=== PATIENT | female | born 1995 ===

== ENCOUNTER 2019-10-16 17:33 | Inpatient (IN) | payer OTHER ==
[~2019-10-16] VITALS: Ht 165.1 cm; Wt 109.0 kg
[2019-10-16] MEDS ORDERED: LABE100 PO (18:01)
[2019-10-16 18:25] LABS: BASOPHILS ABSOLUTE AUTO 0.06 K/mm3 (0.00-0.23); BASOPHILS PERCENT AUTO 1 % (0-2); EOSINOPHILS PERCENT AUTO 2 % (0-6); Hematocrit 36.4 % (33.0-51.0); Hemoglobin 12.3 g/dL (11.5-16.0); IMMATURE GRAN ABSOLUTE AUTO 0.17 K/mm3 (0.00-0.10); IMMATURE GRAN PERCENT AUTO 1 % (0-1); LYMPHOCYTES ABSOLUTE AUTO 1.84 K/mm3 (0.84-5.20); LYMPHOCYTES PERCENT AUTO 14 % (21-46); MONOCYTES ABSOLUTE AUTO 0.88 K/mm3 (0.16-1.47); MONOCYTES PERCENT AUTO 7 % (4-13); Mean Corpuscular HGB 29.6 pg (26.0-34.0); Mean Corpuscular HGB Conc 33.8 g/dL (31.5-36.5); Mean Corpuscular Volume 88 fL (80-100); Mean Platelet Volume 10.4 fL (9.1-12.4); NEUTROPHILS ABSOLUTE AUTO 9.66 K/mm3 (1.96-9.15); NEUTROPHILS PERCENT AUTO 75 % (41-73); Platelet Count 259 K/mm3 (150-400); RDW Coefficient Variation 12.8 % (11.7-14.2); RDW Standard Deviation 40.7 fL (35.1-46.3); Red Blood Cell Count 4.15 M/mm3 (3.80-5.20); White Blood Cell Count 12.91 K/mm3 (4.00-11.30)
[2019-10-16 18:50] LABS: Alanine Aminotransfer (ALT/SGP 26 U/L (12-78); Albumin, Blood 2.9 g/dL (3.4-5.0); Albumin/Globulin Ratio 0.8 (0.8-1.8); Alk Phos 124 U/L (50-136); Anion Gap 11 mmol/L (6-16); Aspartate Aminotrans (AST/SGOT 16 U/L (12-37); Bilirubin, Total 0.1 mg/dL (0.1-1.0); Blood Urea Nitrogen 12 mg/dL (8-24); Bun/Creatinine Ratio 18.9 (12.0-20.0); CO2, Blood 18 mmol/L (21-32); Calcium, Blood 9.1 mg/dL (8.5-10.1); Chloride, Blood 110 mmol/L (98-108); Creatinine, Blood 0.64 mg/dL (0.40-1.00); Globulin, Blood 3.7 g/dL (2.2-4.0); Glomerular Filtration Rate >60 (60-); Glucose, Blood 150 mg/dL (70-99); Potassium, Blood 3.4 mmol/L (3.5-5.5); Sodium, Blood 139 mmol/L (136-145); Total Protein, Blood 6.6 g/dL (6.4-8.2)
--- NOTE | 2019-10-17 23:29 | NUR ---
SHOWER PT AMBULATED TO SHOWER TOLERATED WELL. PT TOLERATED SHOWER WELL. LINEN CHANGED ON BED. NEW GOWN ON PT. PT FIRST VOID IN SHOWER. PT ABLE TO AMBULATE WITHOUT ASSISTANCE BACK TO BED. PT EDUCATED ABOUT IF PT FEELING LIGHT HEADED OR DIZZINESS TO CALL FOR ASSITANCE WITH AMBULATION.PT EDUCATED ON DAISY MEDS AND HOW TO APPLY DAISY PADS. PT EDUCATED ON MAKEING SURE TO URINATE EVERY 2-3 HOURS AND TO BREASTFEED EVERY 2-3 HOURS. PT VERBALIZED UNDERSTANDING. PT DENIES ANY OTHER NEEDS AT THIS TIME.
[2019-10-18 05:32] LABS: BASOPHILS ABSOLUTE AUTO 0.04 K/mm3 (0.00-0.23); BASOPHILS PERCENT AUTO 0 % (0-2); EOSINOPHILS ABSOLUTE AUTO 0.06 K/mm3 (0.00-0.68); EOSINOPHILS PERCENT AUTO 0 % (0-6); Hematocrit 27.5 % (33.0-51.0); Hemoglobin 9.3 g/dL (11.5-16.0); IMMATURE GRAN ABSOLUTE AUTO 0.23 K/mm3 (0.00-0.10); IMMATURE GRAN PERCENT AUTO 1 % (0-1); LYMPHOCYTES ABSOLUTE AUTO 2.24 K/mm3 (0.84-5.20); LYMPHOCYTES PERCENT AUTO 11 % (21-46); MONOCYTES ABSOLUTE AUTO 1.79 K/mm3 (0.16-1.47); MONOCYTES PERCENT AUTO 8 % (4-13); Mean Corpuscular HGB 29.5 pg (26.0-34.0); Mean Corpuscular HGB Conc 33.8 g/dL (31.5-36.5); Mean Corpuscular Volume 87 fL (80-100); Mean Platelet Volume 10.6 fL (9.1-12.4); NEUTROPHILS ABSOLUTE AUTO 16.91 K/mm3 (1.96-9.15); NEUTROPHILS PERCENT AUTO 80 % (41-73); Platelet Count 202 K/mm3 (150-400); RDW Coefficient Variation 12.9 % (11.7-14.2); RDW Standard Deviation 40.4 fL (35.1-46.3); Red Blood Cell Count 3.15 M/mm3 (3.80-5.20); White Blood Cell Count 21.27 K/mm3 (4.00-11.30)
[2019-10-18 17:59] LABS: BASOPHILS ABSOLUTE AUTO 0.06 K/mm3 (0.00-0.23); BASOPHILS PERCENT AUTO 0 % (0-2); EOSINOPHILS ABSOLUTE AUTO 0.29 K/mm3 (0.00-0.68); EOSINOPHILS PERCENT AUTO 2 % (0-6); IMMATURE GRAN ABSOLUTE AUTO 0.18 K/mm3 (0.00-0.10); IMMATURE GRAN PERCENT AUTO 1 % (0-1); LYMPHOCYTES ABSOLUTE AUTO 3.01 K/mm3 (0.84-5.20); LYMPHOCYTES PERCENT AUTO 17 % (21-46); MONOCYTES ABSOLUTE AUTO 1.18 K/mm3 (0.16-1.47); MONOCYTES PERCENT AUTO 7 % (4-13); Mean Corpuscular HGB 29.9 pg (26.0-34.0); Mean Corpuscular HGB Conc 33.3 g/dL (31.5-36.5); Mean Platelet Volume 10.5 fL (9.1-12.4); NEUTROPHILS ABSOLUTE AUTO 13.15 K/mm3 (1.96-9.15); NEUTROPHILS PERCENT AUTO 74 % (41-73); Platelet Count 228 K/mm3 (150-400); RDW Standard Deviation 42.1 fL (35.1-46.3); Red Blood Cell Count 3.01 M/mm3 (3.80-5.20); White Blood Cell Count 17.87 K/mm3 (4.00-11.30)
[2019-10-18 18:04] LABS: Mean Corpuscular Volume 90 fL (80-100)
[2019-10-18] MEDS ORDERED: IBUP800 PO (18:49)
== END 2019-10-18 19:20 | disposition home or self-care (01) | DRG 807 ==
LOC: BC 17:33
PROVIDERS: ADMIT Advanced Practice Midwife
PROC: 3E0P7VZ Introduction of Hormone into Female Reproductive, Via Natural or Artificial Opening (ICD-10-PCS; 2019-10-16)
PROC: 10E0XZZ Delivery of Products of Conception, External Approach (ICD-10-PCS; principal; 2019-10-17)
PROC: 0UQMXZZ Repair Vulva, External Approach (ICD-10-PCS; 2019-10-17)
PROC: 0UQG7ZZ Repair Vagina, Via Natural or Artificial Opening (ICD-10-PCS; 2019-10-17)
DX: O14.94 Unspecified pre-eclampsia, complicating childbirth (principal); Z37.0 Single live birth; O32.6XX0 Maternal care for compound presentation, not applicable or unspecified; O69.81X0 Labor and delivery complicated by cord around neck, without compression, not applicable or unspecified; O71.82 Other specified trauma to perineum and vulva; O71.4 Obstetric high vaginal laceration alone; Z3A.37 37 weeks gestation of pregnancy
CPT/HCPCS: 36415; 80053; 85025; 86850; 86900; 86901; J1885; J2405; J2590; J3010; J7120; Q0163

== ENCOUNTER 2021-09-14 09:30 | Inpatient (IN) | payer OTHER ==
[~2021-09-14] VITALS: Ht 160 cm; Wt 115.0 kg
[~2021-09-14 09:30] MED LIST: IBUP800 PO; LABE100 PO
[2021-09-14 11:49] LABS: BASOPHILS ABSOLUTE AUTO 0.05 K/mm3 (0.00-0.23); BASOPHILS PERCENT AUTO 1 % (0-2); EOSINOPHILS ABSOLUTE AUTO 0.24 K/mm3 (0.00-0.68); EOSINOPHILS PERCENT AUTO 2 % (0-6); Hematocrit 35.6 % (33.0-51.0); Hemoglobin 12.2 g/dL (11.5-16.0); IMMATURE GRAN ABSOLUTE AUTO 0.16 K/mm3 (0.00-0.10); IMMATURE GRAN PERCENT AUTO 2 % (0-1); LYMPHOCYTES ABSOLUTE AUTO 1.43 K/mm3 (0.84-5.20); LYMPHOCYTES PERCENT AUTO 13 % (21-46); MONOCYTES ABSOLUTE AUTO 0.66 K/mm3 (0.16-1.47); MONOCYTES PERCENT AUTO 6 % (4-13); Mean Corpuscular HGB Conc 34.3 g/dL (31.5-36.5); Mean Corpuscular Volume 85 fL (80-100); Mean Platelet Volume 11.2 fL (9.1-12.4); NEUTROPHILS ABSOLUTE AUTO 8.14 K/mm3 (1.96-9.15); NEUTROPHILS PERCENT AUTO 76 % (41-73); Platelet Count 191 K/mm3 (150-400); RDW Coefficient Variation 13.1 % (11.7-14.2); RDW Standard Deviation 40.2 fL (35.1-46.3); Red Blood Cell Count 4.21 M/mm3 (3.80-5.20); White Blood Cell Count 10.68 K/mm3 (4.00-11.30)
[2021-09-14 12:16] LABS: SARS-Cov-2 (COVID-19) PCR, MMC NEGATIVE (NEGATIVE)
[2021-09-14 13:55] LABS: PCO2 Cord - Arterial 70.8 mmHg (40-50); PO2 Cord - Arterial < 13 mmHg (16-20); pH Cord - Arterial 7.07 (7.28-7.35)
[2021-09-14 13:57] LABS: PCO2 Cord - Venous 63.8 mmHg (40-50); PO2 Cord - Venous < 13 mmHg (28-32); pH Umbilical Cord - Venous 7.13 (7.26-7.35)
[2021-09-14 14:03] LABS: PCO2 Cord - Arterial 55.3 mmHg (40-50); PO2 Cord - Arterial < 13 mmHg (16-20); pH Cord - Arterial 7.22 (7.28-7.35)
[2021-09-14 14:06] LABS: PCO2 Cord - Venous 47.2 mmHg (40-50); PO2 Cord - Venous 16.9 mmHg (28-32); pH Umbilical Cord - Venous 7.27 (7.26-7.35)
--- NOTE | 2021-09-14 14:09 | NUR ---
09/14/21 1409 IvoneIvette Yasemin BABY A: 1335 DELIVERY OF VIABLE MALE ; 2945 GM; 20 INCHES LENGTH; 13 IN HEAD; 13 IN CHEST; CORD BLOOD SENT W/Talha KYLE RN; CORD SEGMENT FOR CORD GAS SENT W/LIZETT, RT. BABY B; 1337 DELIVERY OF VIABLE FEMALE INFANT; 2705 GM 5LB 15OZ; 19 IN LENGTH; 13 INCH HEAD; 12.25 IN CHEST; CORD BLOOD SENT W/SUZI CLANCY; CORD SEGMENT FOR CORD GAS SENT W/LIZETT, RT. PLACENTA TO PATHOLOGY. 1 CORD CLAMP BABY A CORD, 2 CLAMPS BABY B CORD
[2021-09-15 05:30] LABS: BASOPHILS ABSOLUTE AUTO 0.06 K/mm3 (0.00-0.23); BASOPHILS PERCENT AUTO 1 % (0-2); EOSINOPHILS ABSOLUTE AUTO 0.22 K/mm3 (0.00-0.68); EOSINOPHILS PERCENT AUTO 2 % (0-6); Hematocrit 29.6 % (33.0-51.0); Hemoglobin 10.2 g/dL (11.5-16.0); IMMATURE GRAN ABSOLUTE AUTO 0.14 K/mm3 (0.00-0.10); IMMATURE GRAN PERCENT AUTO 1 % (0-1); LYMPHOCYTES ABSOLUTE AUTO 1.18 K/mm3 (0.84-5.20); LYMPHOCYTES PERCENT AUTO 9 % (21-46); MONOCYTES ABSOLUTE AUTO 0.86 K/mm3 (0.16-1.47); MONOCYTES PERCENT AUTO 7 % (4-13); Mean Corpuscular HGB 29.7 pg (26.0-34.0); Mean Corpuscular HGB Conc 34.5 g/dL (31.5-36.5); Mean Corpuscular Volume 86 fL (80-100); Mean Platelet Volume 11.3 fL (9.1-12.4); NEUTROPHILS ABSOLUTE AUTO 10.29 K/mm3 (1.96-9.15); NEUTROPHILS PERCENT AUTO 81 % (41-73); Platelet Count 153 K/mm3 (150-400); RDW Coefficient Variation 13.2 % (11.7-14.2); RDW Standard Deviation 40.6 fL (35.1-46.3); Red Blood Cell Count 3.44 M/mm3 (3.80-5.20); White Blood Cell Count 12.75 K/mm3 (4.00-11.30)
[2021-09-16] MEDS ORDERED: ONE-A-DAY PREN1 EAC1 PO (10:10)
[2021-09-16] MEDS ORDERED: IBUP800 PO (10:10)
[2021-09-16] MEDS ORDERED: DOCU100 PO (10:11)
[2021-09-16] MEDS ORDERED: Percocet 5-3251 EACH PO (10:11)
== END 2021-09-16 11:30 | disposition home or self-care (01) | DRG 788 ==
LOC: BC 09:30
PROVIDERS: ADMIT Obstetrics & Gynecology
PROC: 10D00Z1 Extraction of Products of Conception, Low, Open Approach (ICD-10-PCS; principal; 2021-09-15)
DX: O14.04 Mild to moderate pre-eclampsia, complicating childbirth (principal); O30.043 Twin pregnancy, dichorionic/diamniotic, third trimester; O32.1XX0 Maternal care for breech presentation, not applicable or unspecified; Z98.818 Other dental procedure status; Z3A.37 37 weeks gestation of pregnancy; Z37.2 Twins, both liveborn; Z67.40 Type O blood, Rh positive; Z20.822 Contact with and (suspected) exposure to COVID-19
CPT/HCPCS: 36415; 82803; 85025; 86850; 86900; 86901; 86923; 88307; A9270; J0690; J1885; J2590; J2765; J3010; J7120; U0004